=== PATIENT | female | born 1950 | race Two or more races ===

== ENCOUNTER 2017-06-19 12:29 | Observation (INO) | payer MEDICARE, OTHER ==
[~2017-06-19] VITALS: Ht 152.4 cm; Wt 54.6 kg
[~2017-06-19 12:29] MED LIST: LANTINJ SQ; LOSA50TA PO; METF850 PO; NEOSTIGMINE 3 MG/3 ML SYR IV ONE; PHENYLEPH/NS 1000 MCG/10 ML SYR IV ONE; PROPOFOL 200 MG/20 ML AMP IV ONE; ePHEDrine/NS 25 MG/5 ML SYR IV ONE
[2017-06-19 13:15] VITALS: BP 138/72; PULSE 76; RESP 17; TEMP 98.1; O2SAT 100
[2017-06-19] MEDS ORDERED: DEXTROSE 50% IN WATER 50 ML SYRINGE ONE (13:30)
[2017-06-19] MEDS ORDERED: LACTATED RINGER'S 1000 ML IV PRN (13:45)
[2017-06-19] MEDS ORDERED: INSULIN HUMAN REGULAR 1,000 UNITS/10 ML VIAL SQ PRN (13:45)
[2017-06-19] MEDS ORDERED: POVIDONE IODINE 5% (ANTISEPSIS KIT) 4 APPLICATIONS EACH NARE PRN (13:45)
[2017-06-19] MEDS ORDERED: SODIUM CHLORID 0.9% 500 ML IV PRN (13:45)
[2017-06-19] MEDS ORDERED: METOPROLOL TARTRATE 25 MG TAB PO PRN (13:45)
[2017-06-19] MEDS ORDERED: CHLORHEXIDINE GLUCONATE 2 % 1 PACK (2 CLOTHS) TOPICAL PRN (13:45)
[2017-06-19] MEDS ORDERED: CLINDAMYCIN PHOS 600 MG/4 ML VIAL ONE (13:57)
[2017-06-19] MEDS ORDERED: SODIUM CHLORIDE 0.9% INJ 100 ML ONE (13:57)
[2017-06-19] MEDS ORDERED: CLINDAMYCIN 600 MG/NS 100 ML IV SCH ×2 (14:15)
[2017-06-19] MEDS ORDERED: DEXTROSE 50% IN WATER 50 ML SYRINGE IV ONE ×2 (14:15→15:40)
[2017-06-19] MEDS ORDERED: BACITRACIN TOP OINT 15 GM TUBE ONE (14:16)
[2017-06-19] MEDS ORDERED: CHLORHEXIDINE GLUCONATE 0.12% 15 ML CUP ONE (14:16)
[2017-06-19] MEDS ORDERED: ONDANSETRON HCL 4 MG/2 ML VIAL ONE (14:43)
[2017-06-19] MEDS ORDERED: FAMOTIDINE 20 MG/2 ML VIAL ONE (14:43)
[2017-06-19] MEDS ORDERED: ACETAMINOPHEN 1000 MG/100 ML VIAL IV ONE (14:56)
[2017-06-19] MEDS ORDERED: MIDAZOLAM HCL 2 MG/2 ML VIAL ONE (14:57)
[2017-06-19] MEDS ORDERED: fentaNYL CITRATE 250 MCG/5 ML AMP ONE (14:57)
[2017-06-19] MEDS ORDERED: DEXAMETHASONE SOD PHOS 4 MG/ML VIAL ONE (14:57)
--- NOTE | 2017-06-19 15:57 | MH ---
cc: LUIS NÚÑEZ DMD DATE OF ADMISSION: 06/19/2017 DATE OF : 1950 HISTORY OF PRESENT ILLNESS This is a 66-year-old female who presented to my office with a soreness on the left side of the tongue. It had been present for 2 months. She also had a tooth adjacent to it that was sharp and that was smoothen out. However, the symptoms never resolved. 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 At this point it is a T1N0M0 squamous cell carcinoma 1 cm x 1-1/2 cm long. She is going to require resection of this lesion with local advancement closure and with frozen sections. Benefits, risks, indication of the procedure, procedure in detail and the options of no treatment were all discussed with this patient. Risks not limited to any postop pain, infection, bleeding, damage to the adjacent soft tissue, hard tissue, anesthesia complications, numbness, taste function alteration, also change in phonation, change in tongue position, possible further recurrence, further surgery as required. All questions and concerns were addressed. PAST MEDICAL HISTORY 1. Diabetes mellitus. 2. Stomach ulcers. 3. Pancreatitis. 4. Acid reflux disease. 5. human papillomavirus. PAST SURGICAL HISTORY 1. x2. 2. Exploratory abdominal test was inconclusive, that was 30 years ago. AND DEVELOPMENT Normal. INFECTIOUS DISEASES Human papillomavirus history. AUTOIMMUNE DISORDERS Nonapplicable. MEDICATIONS 1. Biotin. 2. Dicyclomine. 3. Glucophage. 4. Humalog insulin. 5. Lantus insulin. 6. Linzess. 7. Losartan. 8. Nucleo CMP forte. 9. Vitamin D3. ALLERGIES PENICILLIN, LATEX AND CODEINE. FAMILY HISTORY Sister has history , mother history of diabetes. Father , history of heart attack. Brother has heart problems, disease. Inherited familial diseases, diabetes. SOCIAL HISTORY Denies any tobacco, any current alcohol. Last alcohol was a year ago. Sleeps normally. 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 REVIEW OF SYSTEMS GENERAL: Weight 133 pounds. Height 5 feet. No recent weight tendency changes. HEAD: Denies any headaches or dizziness, injury and seizures. EYES: History of wearing glasses. Denies any double vision, tearing or blind spots. NOSE: Denies any bleeding, any obstruction or discharges. MOUTH: Denies any dental difficulty, gingival bleeding or dentures. She reports jaw hurts on the left side especially gums near the last teeth 18, 19 and 20. THROAT: It was slightly sore for the throat has been sore for 2 weeks. Denies any hoarseness, any thyroid disease. LYMPH NODES: Denies any glandular enlargement. RESPIRATORY: Denies any TB, shortness of breath, any cough. Denies any asthma, COPD, sleep apnea. CARDIOVASCULAR: Denies any pericardial pain, hypertension, denies any murmurs. Denies any shortness of breath on exersion. Denies any edema, any phlebitis. Denies any rheumatic fever, any heart surgeries. COMMENTS Takes Losartan for kidneys and diabetes for protection. GASTROINTESTINAL: Denies any gallbladder, IBS, any history of peptic ulcers. History of pancreatitis. History of stomach ulcers. GENITOURINARY: Denies any UTI, any kidney disease and renal disease. MUSCULOSKELETAL: Denies any pain, limitation of movement or any muscular weakness. ENDOCRINE: History of diabetes mellitus. Denies any hormone therapy or growth disturbances. HEMATOLOGIC: History of anemia. Denies any bleeding tendency, any Rh incompatibilities. Takes [id number] iron supplements. NEUROLOGIC: Denies any neurological, any sensory disturbances. PHYSICAL EXAMINATION VITAL SIGNS: Pulse is 67, blood pressure 110/68, oxygen saturation of 97%, ASA is 2. GENERAL: Alert, awake and oriented x3, well-groomed female in no acute distress. HEENT: Head is normocephalic. Pupils equal, round and reactive to light and accommodation. Extraocular movements intact. The airway is patent. ___ symmetrical. There is a lesion on the left lateral border of the tongue. It is approximately 1/2 cm x 1 cm long, well-circumscribed. The left lateral border of the tongue is whitish with hyperkeratotic areas. It is smooth, it is firm. No ulcerations noted. It is a little bit tender to palpation. NECK: Positive range of movement. No nodes palpated. CARDIOVASCULAR: Regular rate and rhythm. LUNGS: Clear to auscultation bilaterally. ABDOMEN: Nontender, nondistended, soft. Positive bowel sounds. : Deferred. EXTREMITIES: Left upper extremity in brace. NEUROLOGIC: Cranial nerves II-XII grossly intact. DATA CT scan shows slightly single enlarged group 2 lymph nodes on the right side. No lesion on the tongue noted, which is on the left side. The pathology report: Moderate to poorly differentiated squamous cell carcinoma. LABORATORY DATA Dated February 01, 2017: White count is 4.5, H&H of 12.1 and 36.2 with platelets of 242. Sodium is 145, potassium is 4.2, chloride is 106, C02 is 29, calcium is 9.4, protein is 7.4, BUN is 14, creatinine is 0.63, glucose of 68. 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 We will plan for taking the patient to the main operating room for left partial glossectomy and frozen and local advancement closure. All questions and concerns were addressed. Luis Núñez DMD BIOMEDICAL INSTRUMENT TECHNICIAN/TLL /8:40 AM /3:45 PM [facility]
[2017-06-19] MEDS ORDERED: LIDOCAINE 1%/EPINEPHrine 1:100,000 SOLN 30 ML VIAL INFIL ONE (16:23)
[2017-06-19] MEDS ORDERED: BUPIVACAINE/EPINEPHRINE 0.5% PF 10 ML VIAL INFIL ONE (16:49)
[2017-06-19] MEDS ORDERED: *ONDANSETRON 4 MG VIAL PERIprocedural Use ONLY ONE (17:46)
--- NOTE | 2017-06-19 17:47 | HHI.PR ---
Immediate Post Op Note Procedure Date: Jun 19, 2017 Pre Op Diagnosis: squamous cell carcinoma left lateral tongue Post Op Diagnosis: lexie Surgeon: Feliciano Núñez Part Maker(s): todd patiño Procedure: partial glossectomy left lateral tongue with frozen sections, and local advancement closure Complications: none Specimen(s) removed: main lesion specimen, and 5 frozen specimen Estimated blood loss: minimal Anesthesia: General, Local (2%lidocaine with 1:100,000 epi 3 cc ; 0.5% buvipicane with 1:200,000 epi 3.5cc) Drains: None Patient to: PACU Patient Condition: Good Date/Time of Procedure: SEE SURGICAL CARE RECORD Feliciano Núñez DMD Jun 19, 2017 17:47
[2017-06-19] MEDS ORDERED: GLUCAGON 1 MG/ML VIAL OTHER PRN ×2 (19:30→22:45)
--- NOTE | 2017-06-19 19:30 | HHI.PR ---
Subjective Interval History Patient seen and examined at the Recovery department. She is alert and oriented but having some difficulty with her speech secondary to the oropharyngeal surgery that she had earlier today. She denies any specific complaints otherwise Earlier she had a problem with low blood sugar, at some point her blood sugar was in the 30s I was asked to assume service on this patient by surgeon Review of Systems Constitutional Constitutional Remarks As detailed above, 10 systems reviewed and otherwise negative Vitals/Results Vital Signs Vital Signs Date Time Temp Pulse Resp B/P Pulse Ox O2 Delivery O2 Flow Rate FiO2 06/19/17 18:30 97.2 68 16 142/65 98 Room Air 06/19/17 18:15 72 17 137/66 96 Room Air 06/19/17 18:00 80 16 152/72 99 Room Air 06/19/17 17:45 78 16 135/63 99 Room Air 06/19/17 17:30 96.6 83 16 155/72 100 Nasal Cannula 4 06/19/17 13:15 98.1 76 17 138/72 100 Physical Exam General General Appearance: Well Developed, No Acute Distress, Comfortable Ears & Nose Ears & Nose Exam: Nasal Mucosa [place] Neck Neck Exam: Trachea Midline Pulmonary Resp Exam: Breath Sounds Equal, No Distress Cardiology CV Exam: Normal Sinus Rhythm Gastrointestinal/Abdomen GI Exam: Non-Tender, Bowel Sounds Present Musculoskeletal MS Exam: Normal Tone Neurologic Neuro Exam: Alert, Awake, Oriented, Speech Clear, Moving All Extremities, Research Test Engine Operator Equal, No Focal Deficits Psychiatric Psych Exam: Appropriate Responses VTE Prophylaxis VTE Prophylaxis Device: SCDs Assessment/Plan Assessment/Plan Assessment Oropharyngeal cancer Started at the left side of the tongue Status post surgery for the above on 06/19/17 Diabetes Hypoglycemia Management Hold off on any long-acting diabetes agents No long-acting insulin Sliding scale ordered Pain control DVT prophylaxis with sequential Discussed with Dr. Núñez Discussed with nurse Discussed with patient We will assume service on this patient as requested by surgeon 35 minutes Alvarez Cannon MD Jun 19, 2017 19:30
[2017-06-19 20:00] VITALS: BP 134/64; PULSE 64; RESP 20; TEMP 96.2; O2SAT 97
[2017-06-19] MEDS ORDERED: CHLORHEXIDINE GLUCONATE 0.12% 15 ML CUP SWISH-SPIT SCH (21:15)
[2017-06-19] MEDS ORDERED: DO NOT ADM ANY ANTICOAGULANT DRUGS PRN (21:30)
[2017-06-19] MEDS ORDERED: DEXTROSE 50% IN WATER 50 ML SYRINGE IV PRN (21:30)
[2017-06-19] MEDS ORDERED: ACETAMINOPHEN 325MG/HYDROcodone 7.5MG/15ML UDC PO PRN (21:30)
[2017-06-19] MEDS: MORPHINE SULFATE 4 MG/ML INJ IV PUSH PRN (22:34)
[2017-06-19] MEDS ORDERED: DEXTROSE 50% IN WATER 50 ML VIAL(D50) IV PUSH PRN (22:45)
[2017-06-19] MEDS ORDERED: ONDANSETRON HCL 4 MG/2 ML VIAL IV PUSH PRN (22:45)
[2017-06-20] VITALS: BP 127/66; PULSE 63; RESP 18; TEMP 97; O2SAT 96
[2017-06-20] MEDS: CLINDAMYCIN 600 MG/NS 100 ML IV SCH ×4 (01:04→05:53)
[2017-06-20 04:00] VITALS: BP 125/66; PULSE 65; RESP 18; TEMP 96.4; O2SAT 97
[2017-06-20] MEDS: MORPHINE SULFATE 4 MG/ML INJ IV PUSH PRN ×2 (04:46→10:22)
[2017-06-20] MEDS: LOW DOSE INSULIN NOVOLOG SUPPLEMENTAL SCALE SQ SCH ×2 (05:55→11:00)
[2017-06-20 07:25] LABS: AUTOMATED NEUTROPHIL # 7.4 TH/MM3 (1.8-7.7); BASOPHIL % 0.2 % (0.0-2.0); EOSINOPHIL % 0.1 % (0.0-4.0); HEMO FLAGS DIFF FINAL; LYMPH % 16.6 % (9.0-44.0); LYMPHOCYTE # 1.6 TH/MM3 (1.0-4.8); MEAN CELL VOLUME 77.1 FL (80.0-100.0); MEAN CORPUSCULAR HEMOGLOBIN 26.3 PG (27.0-34.0); MEAN CORPUSCULAR HGB CONC 34.1 % (32.0-36.0); MONO % 7.8 % (0.0-8.0); NEUT % 75.3 % (16.0-70.0); PLATELET COUNT 207 TH/MM3 (150-450); RED BLOOD COUNT 4.54 MIL/MM3 (4.00-5.30); RED CELL DISTRIBUTION WIDTH 16.3 % (11.6-17.2); WHITE BLOOD COUNT 9.8 TH/MM3 (4.0-11.0)
[2017-06-20 07:28] LABS: BICARBONATE 27.9 MEQ/L (21.0-32.0); MAGNESIUM 2.2 MG/DL (1.5-2.5); POTASSIUM 3.9 MEQ/L (3.5-5.1)
[2017-06-20 08:00] VITALS: BP 133/74; PULSE 67; RESP 17; TEMP 96.9; O2SAT 97
--- NOTE | 2017-06-20 08:10 | HHI.PR ---
Subjective Remarks pod 1 s/p left partial tongue glossectomy pt seen and examined, aaox3, nad no complaints, ambulating, tolerating po, voiding denies any breathing/swallowing difficulties Objective Vital Signs Date Time Temp Pulse Resp B/P Pulse Ox O2 Delivery O2 Flow Rate FiO2 06/20/17 06:16 21 06/20/17 04:00 96.4 65 18 125/66 97 06/20/17 00:00 97.0 63 18 127/66 96 06/19/17 20:00 96.2 64 20 134/64 97 06/19/17 18:30 97.2 68 16 142/65 98 Room Air 06/19/17 18:15 72 17 137/66 96 Room Air 06/19/17 18:00 80 16 152/72 99 Room Air 06/19/17 17:45 78 16 135/63 99 Room Air 06/19/17 17:30 96.6 83 16 155/72 100 Nasal Cannula 4 06/19/17 13:15 98.1 76 17 138/72 100 I/O 06/19/17 06/19/17 06/19/17 06/20/17 06/20/17 06/20/17 07:00 15:00 23:00 07:00 15:00 23:00 Intake Total 450 ml 320 ml Output Total 5 ml Balance 445 ml 320 ml Intake Oral 120 ml IV Total 0 ml 200 ml Other 450 ml Output Estimated Blood Loss 5 ml # Voids 1 Result Diagram: 06/20/17 0546 06/20/17 0546 Objective Remarks no neck/no facial edema intraorally, left tongue- mild edema no elevation floor of mouth tissues pink/well perfused wound margins well approximated, sutures intact, hemostatic Assessment and Plan Assessment and Plan pod 1 s/p left tongue partial glossectomy ok to d/c to home today f/up dr Núñez 1 week [phone] soft diet resume all home meds no strenuous activity/exercises ice pops rx in chart - hydrocodone 5/325 #15, zofran 4 mg ODT, #10, peridex rinse, clindamycin 300 mg #15 Feliciano Núñez DMD Jun 20, 2017 08:10
--- NOTE | 2017-06-20 08:35 | EKG ---
Date Performed: 06/19/2017 Time Performed: 13:07:36 PTAGE: 66 years EKG: Sinus rhythm RIGHT BUNDLE BRANCH BLOCK ABNORMAL ECG NO PREVIOUS TRACING DOCTOR: Gustavo Nguyen Interpretating Date/Time 06/20/2017 08:29:57
--- NOTE | 2017-06-20 10:39 | PD.44.CHG ---
Code 44 - Inpatient to Obs A clinical review of the case has been conducted by a member of the Utilization Review Committee. The findings indicate the patient meets criteria for observation status. The information and decision has been discussed with the attending physician Alvarez Cannon MD and physician advisor Muna Araujo. Notes: Review of this record indicates that patient needs observation criteria. I have discussed this case with Dr. Bob. He is in agreement that patient needs observation criteria. Muna Araujo Jr., MD Jun 20, 2017 10:39
[2017-06-20 12:00] VITALS: BP 136/68; PULSE 57; RESP 18; TEMP 96.7; O2SAT 94
[2017-06-20 12:06] VITALS: O2SAT 94
--- NOTE | 2017-06-20 14:44 | HHI.PR ---
Subjective Interval History Alert, oriented, no pain, able to swallow soft food, seen in the presence of his son, Review of Systems Constitutional Constitutional Remarks As detailed above, 10 systems reviewed and otherwise negative Vitals/Results Intake & Output 06/19/17 06/19/17 06/20/17 15:00 23:00 07:00 Intake Total 450 ml 320 ml Output Total 5 ml Balance 445 ml 320 ml Intake Oral 120 ml IV Total 0 ml 200 ml Other 450 ml Output Estimated Blood Loss 5 ml # Voids 1 Vital Signs Vital Signs Date Time Temp Pulse Resp B/P Pulse Ox O2 Delivery O2 Flow Rate FiO2 06/20/17 12:06 94 21 06/20/17 12:00 96.7 57 18 136/68 94 06/20/17 08:00 96.9 67 17 133/74 97 06/20/17 06:16 21 06/20/17 04:00 96.4 65 18 125/66 97 06/20/17 00:00 97.0 63 18 127/66 96 06/19/17 20:00 96.2 64 20 134/64 97 06/19/17 18:30 97.2 68 16 142/65 98 Room Air 06/19/17 18:15 72 17 137/66 96 Room Air 06/19/17 18:00 80 16 152/72 99 Room Air 06/19/17 17:45 78 16 135/63 99 Room Air 06/19/17 17:30 96.6 83 16 155/72 100 Nasal Cannula 4 CBC/BMP: 06/20/17 0546 06/20/17 0546 Lab Results Laboratory Tests Test 06/20/17 05:46 White Blood Count 9.8 TH/MM3 Red Blood Count 4.54 MIL/MM3 Hemoglobin 11.9 GM/DL Hematocrit 35.0 % Mean Corpuscular Volume 77.1 FL Mean Corpuscular Hemoglobin 26.3 PG Mean Corpuscular Hemoglobin 34.1 % Concent Red Cell Distribution Width 16.3 % Platelet Count 207 TH/MM3 Mean Platelet Volume 7.7 FL Neutrophils (%) (Auto) 75.3 % Lymphocytes (%) (Auto) 16.6 % Monocytes (%) (Auto) 7.8 % Eosinophils (%) (Auto) 0.1 % Basophils (%) (Auto) 0.2 % Neutrophils # (Auto) 7.4 TH/MM3 Lymphocytes # (Auto) 1.6 TH/MM3 Monocytes # (Auto) 0.8 TH/MM3 Eosinophils # (Auto) 0.0 TH/MM3 Basophils # (Auto) 0.0 TH/MM3 CBC Comment DIFF FINAL Differential Comment Sodium Level 143 MEQ/L Potassium Level 3.9 MEQ/L Chloride Level 108 MEQ/L Carbon Dioxide Level 27.9 MEQ/L Anion Gap 7 MEQ/L Blood Urea Nitrogen 8 MG/DL Creatinine 0.64 MG/DL Estimat Glomerular Filtration 93 ML/MIN Rate Random Glucose 88 MG/DL Calcium Level 8.8 MG/DL Phosphorus Level 3.6 MG/DL Magnesium Level 2.2 MG/DL Physical Exam General General Appearance: Well Developed, No Acute Distress, Comfortable Ears & Nose Ears & Nose Exam: Nasal Mucosa [place] Neck Neck Exam: Trachea Midline Pulmonary Resp Exam: Breath Sounds Equal, No Distress Cardiology CV Exam: Normal Sinus Rhythm Gastrointestinal/Abdomen GI Exam: Non-Tender, Bowel Sounds Present Musculoskeletal MS Exam: Normal Tone Neurologic Neuro Exam: Alert, Awake, Oriented, Speech Clear, Moving All Extremities, Senior Engineering Associate Equal, No Focal Deficits Psychiatric Psych Exam: Appropriate Responses VTE Prophylaxis VTE Prophylaxis Device: SCDs Assessment/Plan Assessment/Plan Assessment Oropharyngeal cancer Started at the left side of the tongue Status post surgery for the above on 06/19/17 Diabetes Hypoglycemia, improved Management Discharge home today Use the dose of Lantus to 20 units daily Pain control Follow-up with maxillofacial surgeon as outpatient Discussed with nurse Discussed with patient 45 minutes Alvarez Cannon MD Jun 20, 2017 14:44
[2017-06-20] MEDS ORDERED: CHLO.12%30 SWISH-SPIT (14:53)
[2017-06-20] MEDS ORDERED: HYDR1SOL6 PO (14:53)
[2017-06-20] MEDS ORDERED: LANTUS2P SQ (14:54)
--- NOTE | 2017-06-21 19:04 | MP ---
cc: LUIS NÚÑEZ DMD (fax to Dr. Núñez's office) DATE OF SURGERY 06/19/10 PREOPERATIVE DIAGNOSIS Squamous cell carcinoma left lateral tongue. POSTOPERATIVE DIAGNOSIS Squamous cell carcinoma left lateral tongue. PROCEDURE Partial glossectomy left lateral tongue with frozen sections and local advancement closure ANESTHESIA General, also 2% lidocaine with 1:100,000 epinephrine approximately 3 mL, also 0.5% bupivacaine with 1:200,000 epinephrine approximately 3.5 mL at the end of the procedure, SURGEON Dr. Kath Núñez SLURRY TANK TENDER Luciano COMPLICATIONS None. ESTIMATED BLOOD LOSS Minimal SPECIMENS The main lesion and also five frozen specimens in four regions DRAINS None DISPOSITION The patient tolerated procedure well, extubated and taken to the PACU. INDICATIONS FOR PROCEDURE This is a 66-year-old female who has had a lesion on the left lateral border of the tongue having some discomfort. It was biopsied and came back as moderately to poorly differentiated squamous cell carcinoma. It was approximately 1 cm x 1.5 cm. It was a T1 N0 M0 stage I squamous cell carcinoma. She is going to require removal of this lesion and advancement closure. Benefits, risks, indication of the procedure, procedure in detail and the options of no treatment were all discussed with this patient. Risks not limited to any postop pain, infection, bleeding, damage to the adjacent soft tissue, hard tissue anesthesia complications, numbness, taste alteration possibility, recurrence of the lesion, further surgeries as required. All questions and concerns were addressed. Consent is signed in the chart. PROCEDURE IN DETAIL The patient was met preoperatively. Past medical history is reviewed and updated. The patient reports that throat is feeling much better. Other than that, there are no other changes. Surgical site on the left side was marked on the face. The patient taken to operating room number eight, draped in normal sterile fashion. Eyes were taped shut. She underwent oral intubation. All pressure points were padded. At this time, a time-out was taken to identify the patient, the site, the procedure and surgeon and all were in agreement. The patient draped with Betadine. I went to the sink to scrub and came back to wear the sterile attire. The patient was draped in normal sterile fashion. Back of throat was suctioned. Moistened Ray-Anusha used as a throat pack. Peridex mouth rinse was done intraorally. A 2% lidocaine was given on the left lateral border region where the lesion is and also on the anterior tip of the tongue. A 2-0 silk suture was put on the anterior tongue region to help pull the tongue out. Once this was done, a marking pen was used to outline the area for the plane of the incision around the lesion. Once this was done, a 15 blade was used to excise this lesion. Once this was done, bovie used to stop any bleeding which was minimal. Then frozen from the anterior superior, posterior superior and inferior and to in the mid portion of the lesion deep were taken. Dr. Kauffman came back to tell me everything was clear. Main specimen was taken for permanent specimen, oriented 2.0 silk suture. Site was irrigated with Peridex solution. Finally the surgical site was undermined and closed with 3-0 Vicryl sutures horizontal mattress fashion. 0.5% bupivacaine with 1:200,000 epinephrine was injected over the site and again where the 2-0 silk suture was placed. 2-0 silk suture was now removed, throat pack was removed. Bite block was removed which was placed in the mouth. The patient tolerated the procedure well. No complication noted. All counts were accounted for, needle and sponge count, at the end of the case. Luis Núñez DMD RRT/ /5:44 PM /6:40 PM [facility]
== END 2017-06-20 15:26 | disposition home or self-care (01) ==
LOC: HSDC 12:29 → N07B 18:53 → INTOOBSV 18:53
PROVIDERS: ADMIT Specialist; ATTEND Specialist
PROC: 0CB70ZZ Excision of Tongue, Open Approach (ICD-10-PCS; principal; 2017-06-19 15:48)
DX: C02.1 Malignant neoplasm of border of tongue (principal); K21.9 Gastro-esophageal reflux disease without esophagitis; E11.649 Type 2 diabetes mellitus with hypoglycemia without coma; R94.31 Abnormal electrocardiogram [ECG] [EKG]; Z79.4 Long term (current) use of insulin
CPT/HCPCS: 00170; 41120; 80048; 82948; 83735; 84100; 85025; 88305; 88331; 88342; 93005; G0378; J0131; J1100; J2250; J2270; J2370; J2405; J2710; J3010; J7120; 88341